=== PATIENT | female | born 1985 | race Caucasian/White ===

== ENCOUNTER 2017-07-21 10:04 | Emergency (ER) | payer OTHER ==
[~2017-07-21] VITALS: Ht 167.6 cm; Wt 81.6 kg
[~2017-07-21 10:04] MED LIST: AMOXICILLIN250 M3 PO; BACTRIM DS TAB1 EACH PO; IBUPROFEN600 M1 PO; ZOFRAN ODT4 M1 SL
--- NOTE | 2017-07-21 12:06 | ED INFLUENZA/URI COMPLAINT ---
History of Present Illness General Chief Complaint: Upper Respiratory Sx/Fever Stated Complaint: FLU SYMPTOMS Source: patient Exam Limitations: no limitations Vital Signs & Intake/Output Vital Signs & Intake/Output Vital Signs Date Time Temp Pulse Resp B/P B/P Pulse O2 O2 Flow FiO2 Mean Ox Delivery Rate 07/21 1411 97.4 83 18 126/71 97 Room Air Room Air 07/21 1212 99 Room Air Room Air 07/21 1105 97.4 98 18 130/77 97 Room Air Room Air Allergies Coded Allergies: No Known Drug Allergies (NKDA 03/04/17) Reconcile Medications Amoxicillin 250 MG CAPSULE 1 CAP PO TID PHARYNGITIS Amoxicillin/Potassium Clav (Augmentin 875-125 Tablet) 875 MG-125 MG TABLET 1 TAB PO BID tonsilitis Benzonatate (Tessalon Perle) 100 MG CAPSULE 1 CAP PO TID PRN cough Ondansetron (Zofran Odt) 4 MG TAB.RAPDIS 1 TAB SL TID PRN NAUSEA Prednisone 10 MG TABLET 1 TAB PO DAILY tonsilitis 3 tabs po x 3 days, 2 tabs po x 3 days, 1 tab po x 3 days Triage Note: PT TO ED WITH C/O FEVER BODY ACHES, HAD FLU 2 MONTHS AGO. FLU SWAB SENT FROM TRIAGE. Triage Nurses Notes Reviewed? yes Onset: Gradual Duration: day(s): (3) Timing: remote history Severity: moderate Prior Episodes/Possible Cause: occassional episodes No Modifying Factors: none Associated Symptoms: cough, nasal congestion, nasal drainage, sore throat : No Patient currently breastfeeds: No HPI: Patient is a 32-year-old female presenting to the emergency Department chief complaint of upper respiratory congestion, sore throat, tactile fevers and chills as well as nausea and vomiting that started 3 days ago. No sick contacts or recent travel. Denies taking anything to help with symptoms besides over-the -counter Tylenol and Motrin which she took approximately 3 hours prior to arrival. Last episode of emesis was snorting and nonbloody nonbilious. Denies abdominal pain. Denies chest pain palpitations or shortness of breath. Patient does report a dry cough for the past 3 days as well. (Surendra PATIÑO,Clarissa) Past History Travel History Traveled to [place] past 21 day No Medical History Any Pertinent Medical History? 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 No (Clarissa Reed) Review of Systems Review of Systems Constitutional: Reports: see HPI, chills, fever, malaise. Comments Review of systems: See HPI, All other systems negative. Constitutional, no weight loss HEENT: No visual changes no sore throat no congestion Cardiovascular: No chest pain ,palpitation , orthopnea or ankle swelling Skin, no jaundice no rashes Respiratory: No dyspnea sputum or hemoptysis GI: No nausea no vomiting : No dysuria No hematuria Muscle skeletal: no back pain, no neck pain, Neurologic: No numbness no confusion Psych: No stress anxiety or depression,. Heme/endocrine: No bruising no bleeding no polyuria or polydipsia Immunology: No splenectomy or history of AIDS (Clarissa Reed) Physical Exam Physical Exam General Appearance: well developed/nourished, no apparent distress, alert, awake , comfortable Ears, Nose, Throat: pharyngeal erythema Comments: Well-developed well-nourished person in no acute distress HEENT: Pupils equally round and reactive to light and accommodation. Nose is atraumatic. External auditory canal and Tympanic membranes clear. Pharynx is mildly erythematous, with exudate present bilaterally. Moderate tonsillar enlargement bilaterally. No swelling or edema. Neck: Supple, anterior cervical lymphadenopathy bilaterally, mobile. Back: Nontender Cardiovascular: Regular rate and rhythms no murmurs rubs or gallops, normal JVP Respiratory: Chest nontender. No respiratory distress.breath sounds clear to auscultation bilaterally Abdomen: Soft, nontender nondistended, no appreciable organomegaly. Normal bowel sounds. No ascites Extremity: No edema Neuro: Alert oriented x3 Skin: No appreciable rash on exposed skin, skin is warm and slightly diaphoretic Psych: Mood and affect is normal, memory and judgment is normal. Core Measures Sepsis Present: No Sepsis Focused Exam Completed? No (Clarissa Reed) Progress Differential Diagnosis: influenza, pneumonia, pharyngitis, sinusitis Plan of Care: Orders Procedure Date/time Status MONOSPOT 07/21 1222 Complete COMPREHENSIVE METABOLIC PANEL 07/21 1222 Complete CBC WITHOUT DIFFERENTIAL 07/21 1222 Complete THROAT CULTURE W/QUICK STREP 07/21 1110 Active RAPID VIRAL INFLUENZA A 07/21 1015 Complete Laboratory Tests 07/21/17 1255: Anion Gap 7, Estimated GFR > 60, BUN/Creatinine Ratio 18.0, Glucose 92, Calcium 9.1, Total Bilirubin 0.4, AST 64 H, ALT 105 H, Alkaline Phosphatase 61, Total Protein 7.6, Albumin 4.0, Globulin 3.6, Albumin/Globulin Ratio 1.1, CBC w Diff NO MAN DIFF REQ, RBC 4.43, MCV 88.3, MCH 30.1, MCHC 34.1, RDW 13.7, MPV 8.8, Gran % 74.6, Lymphocytes % 16.9 L, Monocytes % 7.9, Eosinophils % 0.1, Basophils % 0.5, Absolute Granulocytes 5.3, Absolute Lymphocytes 1.2, Absolute Monocytes 0.6, Absolute Eosinophils 0, Absolute Basophils 0, Infectious Ellis Titer NEGATIVE Microbiology 07/21 1110 NASOPHARYN: Influenza Virus A & B Rapid Smear - COMP Initial ED EKG: none Comments: Patient feeling improved after IV fluids, Toradol and Zofran. (Clarissa Reed) Departure Departure Time of Disposition: 1354 Disposition: HOME OR SELF CARE Condition: Stable Clinical Impression Primary Impression: Tonsillitis Referrals: Brii HOLCOMB,Harika Payan Patient Has No Primary Care Dr (PCP/Family) Additional Instructions: Follow-up with ENT if symptoms persist. Take antibiotics and steroids as directed to help with tonsillitis. Increase fluids. Take Tessalon pearls as prescribed for cough. Take [id number] Tylenol as directed for aches pains or fevers. Departure Forms: Customer Survey General Discharge Information Prescriptions: Current Visit Scripts Amoxicillin/Potassium Clav (Augmentin 875-125 Tablet) 1 TAB PO BID #20 TAB Prednisone 1 TAB PO DAILY #18 TAB 3 tabs po x 3 days, 2 tabs po x 3 days, 1 tab po x 3 days Benzonatate (Tessalon Perle) 1 CAP PO TID PRN cough #30 CAP (Clarissa Reed) PA/MARKETING COMMUNICATIONS MANAGER Co-Sign Statement Statement: ED Attending supervision documentation- [] I saw and evaluated the patient. I have also reviewed all the pertinent lab results and diagnostic results. I agree with the findings and the plan of care as documented in the PA's/MARKETING COMMUNICATIONS MANAGER's documentation. [X] I have reviewed the ED Record and agree with the PA's/MARKETING COMMUNICATIONS MANAGER's documentation. [] Additions or exceptions (if any) to the PAs/MARKETING COMMUNICATIONS MANAGER's note and plan are summarized below: [] (Kamaljit Denise DO
[2017-07-21 13:05] LABS: ABSOLUTE BASOPHIL COUNT 0 /CUMM (0.0-0.2); ABSOLUTE EOSINOPHIL COUNT 0 /CUMM (0.0-0.7); ABSOLUTE GRANULOCYTE CT 5.3 /CUMM (1.4-6.5); ABSOLUTE LYMPH COUNT 1.2 /CUMM (1.2-3.4); ABSOLUTE MONOCYTE COUNT 0.6 /CUMM (0.10-0.60); BASOPHIL % 0.5 % (0.0-2.0); EOSINOPHIL % 0.1 % (0-5); GRANULOCYTE % 74.6 % (42.2-75.2); HEMATOCRIT 39.1 % (37-47); MEAN CORPUSCULAR HGB 30.1 PG (27.0-31.0); MEAN CORPUSCULAR HGB CONC 34.1 G/DL (33.0-37.0); MEAN CORPUSCULAR VOLUME 88.3 FL (81.0-99.0); MEAN PLATELET VOLUME 8.8 FL (7.4-10.4); PLATELET COUNT 217 /CUMM (130-400); RBC DISTRIBUTION WIDTH 13.7 % (11.5-14.5); RED BLOOD CELL CT 4.43 /CUMM (4.20-5.40); WHITE BLOOD CELL COUNT 7.2 /CUMM (4.8-10.8)
[2017-07-21] MEDS ORDERED: PREDNISONE10 M2 PO (13:56)
[2017-07-21] MEDS ORDERED: AUGMENTIN 875-1 EACH PO (13:56)
[2017-07-21] MEDS ORDERED: TESSALON PERLE100 M1 PO (13:56)
[2017-07-21 14:11] VITALS: BP 126/71
== END 2017-07-21 14:11 ==
LOC: ERH 10:04
PROVIDERS: Physician Assistant
DX: J03.90 Acute tonsillitis, unspecified (principal)
CPT/HCPCS: 87804; 87804-59; 96361; 96374; 96375; J1885; J2405

== ENCOUNTER 2017-12-31 08:45 | Emergency (ER) | payer OTHER ==
[~2017-12-31] VITALS: Ht 167.6 cm; Wt 81.6 kg
[~2017-12-31 08:45] MED LIST changes: +AUGMENTIN 875-1 EACH PO; +PREDNISONE10 M2 PO; +TESSALON PERLE100 M1 PO
[2017-12-31 09:35] LABS: ABSOLUTE BASOPHIL COUNT 0 /CUMM (0.0-0.2); ABSOLUTE EOSINOPHIL COUNT 0 /CUMM (0.0-0.7); ABSOLUTE GRANULOCYTE CT 11.6 /CUMM (1.4-6.5); ABSOLUTE LYMPH COUNT 1.2 /CUMM (1.2-3.4); ABSOLUTE MONOCYTE COUNT 0.8 /CUMM (0.10-0.60); BASOPHIL % 0 % (0.0-2.0); EOSINOPHIL % 0 % (0-5); HEMATOCRIT 41.3 % (37-47); MEAN CORPUSCULAR HGB 29.9 PG (27.0-31.0); MEAN CORPUSCULAR HGB CONC 33.5 G/DL (33.0-37.0); MEAN CORPUSCULAR VOLUME 89.1 FL (81.0-99.0); MEAN PLATELET VOLUME 9.5 FL (7.4-10.4); PLATELET COUNT 209 /CUMM (130-400); RED BLOOD CELL CT 4.63 /CUMM (4.20-5.40); WHITE BLOOD CELL COUNT 13.6 /CUMM (4.8-10.8)
[2017-12-31 09:49] LABS: GRANULOCYTE % 85.3 % (42.2-75.2)
--- NOTE | 2017-12-31 12:36 | CT SCAN REPORT ---
EXAMINATION: CT ABDOMEN AND PELVIS WITHOUT CONTRAST CLINICAL INFORMATION: Left flank pain evaluate for ureterolithiasis COMPARISON: CT scan of the abdomen and pelvis February 2017. Ultrasound April 2017. TECHNIQUE: Multidetector volumetric imaging was performed from the superior aspect of the liver through the pubic symphysis. Sagittal and coronal reformatted images were obtained on the technologist's workstation. DLP: 349 mGy-cm FINDINGS: LUNG BASES: The visualized lung bases are unremarkable. LIVER, GALLBLADDER, AND BILIARY TREE: The liver is normal in size, shape, and attenuation. No focal hepatic lesion or biliary ductal dilatation is present. The gallbladder is unremarkable with no evidence of radiopaque gallstones, gallbladder wall thickening, or obvious pericholecystic inflammatory changes. PANCREAS: Unremarkable. SPLEEN: Unremarkable. ADRENAL GLANDS: Unremarkable. KIDNEYS AND URETERS: 2 mm calcification in the right renal pelvis nonobstructing. No hydronephrosis. No hydroureter BLADDER: Unremarkable. GASTROINTESTINAL TRACT: The small and large bowel are unremarkable. The appendix is unremarkable. ABDOMINAL WALL: No significant hernia is appreciated. LYMPH NODES: Normal. VASCULAR: Unremarkable. PELVIC VISCERA: Unremarkable. OSSEOUS STRUCTURES: Unremarkable. IMPRESSION: No acute abnormality Small nonobstructing calculus in the right kidney.
[2017-12-31 12:57] VITALS: BP 118/74
--- NOTE | 2017-12-31 12:57 | ED GI/GU/ABDOMINAL COMPLAINT ---
History of Present Illness General Chief Complaint: Abdominal Pain/Flank Pain Stated Complaint: +V SINCE YESTERDAY/ ABD PAIN Source: patient Exam Limitations: no limitations Vital Signs & Intake/Output Vital Signs & Intake/Output Vital Signs Date Time Temp Pulse Resp B/P B/P Pulse O2 O2 Flow FiO2 Mean Ox Delivery Rate 12/31 1257 98.0 82 18 118/74 98 Room Air 12/31 1200 97.1 80 18 120/74 98 Room Air 12/31 0908 98 Room Air 12/31 0850 98.5 83 20 122/78 99 Room Air Allergies Coded Allergies: No Known Drug Allergies (NKDA 03/04/17) Reconcile Medications No Known Home Medications Triage Note: PT TO ED FROM bttn FOR C/O THIS AM. C/O N/V, DENIES DIARRHEA. PAIN IS LEFT ABD RADIATING TO BACK. Triage Nurses Notes Reviewed? yes ? N Is pt currently ? No HPI: 32-year-old female presents with left-sided abdominal and flank pain. It is associated with nausea and vomiting. She denies any urinary frequency, urgency or dysuria. Patient denies being . Patient is never had a pain like this before. Patient described as moderate to severe. The pain comes and goes but has a constant basis to it. Pain state starts in the left lateral abdominal area and radiates to the back. Patient visited an urgent care earlier today, noted to have blood in urine was sent to the emergency department for evaluation. Prior treatment included Zofran. Past History Travel History Traveled to [place] past 21 day No Medical History Any Pertinent Medical History? 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 No Review of Systems Review of Systems Constitutional: Denies: no symptoms. EENTM: Denies: no symptoms. Respiratory: Denies: no symptoms. Cardiovascular: Denies: no symptoms. GI: Reports: no symptoms, abdominal pain, nausea. Denies: constipation, diarrhea. Genitourinary: Denies: no symptoms. Musculoskeletal: Reports: back pain. Skin: Denies: no symptoms. Neurological/Psychological: Denies: no symptoms. Hematologic/Endocrine: Denies: no symptoms. Immunologic/Allergic: Denies: no symptoms. All Other Systems: Reviewed and Negative Physical Exam Physical Exam General Appearance: well developed/nourished, no apparent distress, alert, awake Head: atraumatic, normal appearance Eyes: Bilateral: normal appearance. Ears, Nose, Throat, Mouth: hearing grossly normal Neck: normal inspection, supple Respiratory: normal breath sounds, lungs clear Cardiovascular: regular rate/rhythm, edema, normal peripheral pulses Gastrointestinal: normal bowel sounds, soft, tenderness Back: normal inspection, vertebral tenderness Extremities: normal range of motion Neurologic/Psych: no motor/sensory deficits, awake, alert, oriented x 3, normal gait, normal mood/affect Skin: intact Core Measures ACS in differential dx? No Sepsis Present: No Sepsis Focused Exam Completed? No Progress Differential Diagnosis: kidney stone, pancreatitis, PUD/GERD, UTI/pyelo Plan of Care: Orders Procedure Date/time Status Saline Lock 12/31 913 Active CULTURE,URINE 12/31 913 Active URINE 12/31 913 Complete URINALYSIS 12/31 913 Complete LIPASE 12/31 913 Complete COMPREHENSIVE METABOLIC PANEL 12/31 913 Complete CBC WITHOUT DIFFERENTIAL 12/31 913 Complete Current Medications Sig/Yo Start time Last Medication Dose Stop Time Status Admin Sodium Chloride 1,000 ML .Q20H 12/31 914 AC 12/31 (Normal Saline 0.9%) 0915 Laboratory Tests 12/31/17 1106: Urine Color YEL, Urine Clarity HAZY H, Urine pH 6.0, Ur Specific Clarence 1.010, Urine Protein NEG, Urine Ketones 15 H, Urine Nitrite NEG, Urine Bilirubin NEG, Urine Urobilinogen 0.2, Ur Leukocyte Esterase LARGE H, Ur Microscopic SEDIMENT EXAMINED, Urine RBC RARE, Urine WBC 15-25 H, Ur Epithelial Cells FEW, Urine Bacteria FEW H, Urine Hemoglobin SMALL H, Urine Glucose NEG, Urine Test NEGATIVE 12/31/17 0920: Anion Gap 13, Estimated GFR > 60, BUN/Creatinine Ratio 15.0, Glucose 133 H, Calcium 9.2, Total Bilirubin 0.7, AST 65 H, ALT 115 H, Alkaline Phosphatase 82 , Total Protein 7.9, Albumin 4.3, Globulin 3.6, Albumin/Globulin Ratio 1.2, Lipase 12 L, CBC w Diff NO MAN DIFF REQ, RBC 4.63, MCV 89.1, MCH 29.9, MCHC 33.5, RDW 13.0, MPV 9.5, Gran % 85.3 H, Lymphocytes % 8.9 L, Monocytes % 5.8, Eosinophils % 0, Basophils % 0, Absolute Granulocytes 11.6 H, Absolute Lymphocytes 1.2, Absolute Monocytes 0.8 H, Absolute Eosinophils 0, Absolute Basophils 0 Microbiology 12/31 1106 URINE ROUT: Urine Culture - RECD PATIENT: KEVAN SANTIAGO PRESENT AGE: 32 PATIENT ACCOUNT NO: [id number] : 86 LOCATION: [facility] ORDERING PHYSICIAN: Lars Alvarado MD SERVICE DATE: 12/31/17 EXAM TYPE: CAT - CT ABD & PELVIS W/O IV CONTRAS EXAMINATION: CT ABDOMEN AND PELVIS WITHOUT CONTRAST CLINICAL INFORMATION: Left flank pain evaluate for ureterolithiasis COMPARISON: CT scan of the abdomen and pelvis February 2017. Ultrasound April 2017. TECHNIQUE: Multidetector volumetric imaging was performed from the superior aspect of the liver through the pubic symphysis. Sagittal and coronal reformatted images were obtained on the technologist's workstation. DLP: 349 mGy-cm FINDINGS: LUNG BASES: The visualized lung bases are unremarkable. LIVER, GALLBLADDER, AND BILIARY TREE: The liver is normal in size, shape, and attenuation. No focal hepatic lesion or biliary ductal dilatation is present. The gallbladder is unremarkable with no evidence of radiopaque gallstones, gallbladder wall thickening, or obvious pericholecystic inflammatory changes. PANCREAS: Unremarkable. SPLEEN: Unremarkable. ADRENAL GLANDS: Unremarkable. KIDNEYS AND URETERS: 2 mm calcification in the right renal pelvis nonobstructing. No hydronephrosis. No hydroureter BLADDER: Unremarkable. GASTROINTESTINAL TRACT: The small and large bowel are unremarkable. The appendix is unremarkable. ABDOMINAL WALL: No significant hernia is appreciated. LYMPH NODES: Normal. VASCULAR: Unremarkable. PELVIC VISCERA: Unremarkable. OSSEOUS STRUCTURES: Unremarkable. IMPRESSION: No acute abnormality Small nonobstructing calculus in the right kidney. DICTATED BY: Alvaro Patterson MD DATE/TIME DICTATED:12/31/171224 [employer] INSULATION SUPERVISOR:DONTRELL DATE/TIME TRANSCRIBED:09/27/18 / 1225 CONFIDENTIAL, DO NOT COPY WITHOUT APPROPRIATE AUTHORIZATION. <Electronically signed in Other Vendor System> SIGNED BY: Alvaro Patterson MD 12/31 4048 32-year-old female with no major medical problems presents with left-sided abdominal and flank pain. Urinalysis revealed mild to moderate urinary tract infection. Patient most likely has pyelonephritis. CT scan was ordered to rule out acute ureteral colic. There are 2 nonobstructing stones that likely are asymptomatic at this time. Patient does have an elevated white blood cell count. Patient will start oral antibiotics, drink appropriate levels of fluids and return for high fevers, and Uncontrolled pain, intractable nausea or vomiting. Initial ED EKG: none Departure Departure Disposition: HOME OR SELF CARE Condition: Stable Clinical Impression Primary Impression: Acute pyelonephritis Referrals: Patient Has No Primary Care Dr (PCP/Family) Departure Forms: Customer Survey General Discharge Information Prescriptions: Current Visit Scripts Ciprofloxacin HCl (Cipro) 1 TAB PO BID #28 TAB Ondansetron (Zofran Odt) 1 TAB SL TID PRN Nausea #15 TAB
[2017-12-31] MEDS ORDERED: ZOFRAN ODT4 M1 SL (13:02)
[2017-12-31] MEDS ORDERED: CIPRO500 M1 PO (13:02)
== END 2017-12-31 13:10 ==
LOC: ERH 08:45
PROVIDERS: Emergency Medicine
DX: N12 Tubulo-interstitial nephritis, not specified as acute or chronic (principal); R10.9 Unspecified abdominal pain; R11.2 Nausea with vomiting, unspecified; F17.210 Nicotine dependence, cigarettes, uncomplicated
CPT/HCPCS: 74176; 81001; 81025; 87086; 96374; 96375; J0131; J1885; J2405